=== PATIENT | male | born 1995 | race Two or more races ===

== ENCOUNTER 2017-09-25 18:22 | Emergency (ER) | payer MEDICAID ==
[~2017-09-25] VITALS: Ht 160 cm; Wt 58.5 kg
[2017-09-25 18:35] VITALS: BP 137/89
[2017-09-25] MEDS ORDERED: IBUPROFEN 600 MG TAB PO ONE (21:30)
== END 2017-09-26 01:21 | disposition home or self-care (01) ==
LOC: ER 18:22
DX: S60.221A Contusion of right hand, initial encounter (principal); W22.01XA Walked into wall, initial encounter; Y93.89 Activity, other specified; Y92.89 Other specified places as the place of occurrence of the external cause; Y99.8 Other external cause status
CPT/HCPCS: 73130